=== PATIENT | male | born 1995 | race Caucasian/White ===

== ENCOUNTER → 2016-07-23 | Outpatient (CLI) | payer OTHER ==
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
== END | disposition disaster alternative care site (69) ==
LOC: GNEU 08:00
DX: R55 Syncope and collapse (principal)